=== PATIENT | female | born 1980 | race Caucasian/White ===

== ENCOUNTER → 2016-12-27 | Outpatient (CLI) | payer MEDICAID | LOC: HPND 09:14 | PROVIDERS: ATTEND Obstetrics & Gynecology | DX: O36.5990 Maternal care for other known or suspected poor fetal growth, unspecified trimester, not applicable or unspecified (principal); O24.419 Gestational diabetes mellitus in pregnancy, unspecified control; O14.90 Unspecified pre-eclampsia, unspecified trimester; O16.9 Unspecified maternal hypertension, unspecified trimester | CPT/HCPCS: 76816; 76818; 76820; 76821 ==